=== PATIENT | male | born 1955 | race Two or more races ===

== ENCOUNTER 2017-04-18 22:55 | Inpatient (IN) | payer MEDICAID, OTHER ==
[~2017-04-18] VITALS: Ht 165.1 cm; Wt 89.8 kg
--- NOTE | 2017-04-18 22:58 | NUR ---
PT TO ER BED 3. BBRA FROM HOME PT WITH SOB X 1 HOUR, ON CPAP BY EMS ON ARRIVAL . PT HR [address] MON[address]OR. [address] STEWART AND RT AT THE BEDSIDE.
[2017-04-18 23:00] VITALS: BP 102/71
--- NOTE | 2017-04-18 23:00 | NUR ---
BIPAP SETTINGS IPAP 15 EPAP 5 FIO2 100% RATE 18.
--- NOTE | 2017-04-18 23:03 | NUR ---
18G IV TO R AC X 1 ATTEMPT USING ASEPTIC TECH, BLOOD HANDED OVER TO LAB AT THE BEDSIDE. IV FLUSHES EASILY, NO S/S INFILTRATION NOTED.
--- NOTE | 2017-04-18 23:07 | NUR ---
XRAY AT BEDSIDE.
[2017-04-18] MEDS ORDERED: AMIODARONE 150 MG/3 ML VIAL IV ONE ×5 (23:13→23:30)
[2017-04-18 23:20] LABS: BASOPHILS # (AUTO) 0.1 /CMM (0.0-0.2); BASOPHILS % (AUTO) 0.6 % (0.0-2.0); EOSINOPHILS # (AUTO) 0.6 /CMM (0.0-0.7); EOSINOPHILS % (AUTO) 3.4 % (0.0-6.0); HEMATOCRIT 52 % (39-51); HEMOGLOBIN 17.1 g/dL (13.5-17.5); LYMPHOCYTES # (AUTO) 8.1 /CMM (0.8-4.8); LYMPHOCYTES % (AUTO) 45.6 % (20.0-44.0); MEAN CORPUSCULAR HEMOGLOBIN 30 PG (26.0-33.0); MEAN CORPUSCULAR HGB CONC 33 g/dl (31.0-36.0); MEAN CORPUSCULAR VOLUME 90 fL (80-96); MONOCYTES # (AUTO) 1.8 /CMM (0.1-1.30); MONOCYTES % (AUTO) 9.9 % (2.0-12.0); NEUTROPHILS # (AUTO) 7.2 /CMM (1.8-8.9); NEUTROPHILS % (AUTO) 40.5 % (43.0-81.0); PLATELET COUNT (AUTO) 211 /CMM (150-450); RDW COEFFICIENT OF VARIATION 15.3 (11.5-15.0); RED BLOOD CELL COUNT(AUTO) 5.76 MIL/uL (4.5-6.0); WHITE BLOOD COUNT (AUTO) 17.8 K/uL (4.3-11.0)
[2017-04-18 23:28] LABS: ABG BASE EXCESS -10.1 mmol/L; ABG OXYGEN SATURATION 99.2 % (92.0-98.5); ABG PCO2 34.1 mmHg (35.0-45.0); ABG PH 7.276 (7.350-7.450); ABG PO2 320.5 mmHg (75.0-100.0); AaDO2 358.4 mmHg; COHb 2.1 % (0.5-1.5); MetHb 0.8 % (0.0-1.5); O2Hb 96.3 % (94.0-97.0); SITE, ABG Right Radial; VENT MODE, BG Bipap 20/10 100% BR20
[2017-04-18 23:30] LABS: INR 0.96 (0.87-1.13)
--- NOTE | 2017-04-18 23:30 | NUR ---
PT REC'D ON CPAP MASK 15L. SOB AND RESP DISTRESS NOTED. PT PLACED ON BIPAP PER DR HEALY REQUEST. BIPAP PLUGGED INTO RED OUTLET. AMBU BAG BEDSIDE. WILL CONTINUE TO MONITOR.
[2017-04-18] MEDS ORDERED: ERGO400T7 PO (23:34)
[2017-04-18] MEDS ORDERED: POTA10CA43 PO (23:34)
[2017-04-18] MEDS ORDERED: CLOP75TA15 PO (23:34)
[2017-04-18] MEDS ORDERED: CILO100T PO (23:34)
[2017-04-18] MEDS ORDERED: ISOS30TA6 PO (23:34)
[2017-04-18] MEDS ORDERED: FAMO20TA8 PO (23:34)
[2017-04-18] MEDS ORDERED: TAMS0.4C34 PO (23:34)
[2017-04-18] MEDS ORDERED: LOSA25TA13 PO (23:34)
[2017-04-18] MEDS ORDERED: ASPI-605 PO (23:34)
[2017-04-18] MEDS ORDERED: OMEG1CAP PO (23:34)
[2017-04-18] MEDS ORDERED: CARV12.52 PO (23:34)
[2017-04-18] MEDS ORDERED: FINA5TAB11 PO (23:34)
[2017-04-18] MEDS ORDERED: FURO-144 PO (23:34)
[2017-04-18] MEDS ORDERED: ATOR80TA PO (23:34)
[2017-04-18] MEDS ORDERED: NITR0.4T48 SL (23:34)
[2017-04-18] MEDS ORDERED: MAGN400T6 PO (23:34)
[2017-04-18 23:39] LABS: ALANINE AMINOTRANSFERASE 55 U/L (12-78); ALBUMIN 4.3 g/dL (3.4-5.0); ALKALINE PHOSPHATASE 76 U/L (46-116); ASPARTATE AMINOTRANSFERASE 30 U/L (15-37); B-TYPE NATRIURETIC PEPTIDE 2321 PG/ML (0-125); BILIRUBIN,DIRECT 0.2 mg/dL (0.0-0.2); BILIRUBIN,TOTAL 0.7 mg/dL (0.2-1.0); CALCIUM, SERUM 9.3 mg/dL (8.5-10.1); CARBON DIOXIDE 23 mmol/L (21-32); CHLORIDE 105 mmol/L (98-107); CREATININE 1.5 mg/dL (0.6-1.3); GLUCOSE 175 mg/dL (74-106); POTASSIUM 3.1 mmol/L (3.5-5.1); SODIUM SERUM 144 mmol/L (136-145); TOTAL PROTEIN, SERUM 8.1 g/dL (6.4-8.2)
--- NOTE | 2017-04-18 23:40 | NUR ---
ABG RESULTS SHOWN TO DR STEWART. BIPAP SETTINGS ADJUSTED PER DR STEWART Addendum: 04/18/17 at 2358 by KATERINE BROWN RT Amended: Links added.
[2017-04-18 23:46] LABS: UREA NITROGEN, BLOOD 22 mg/dL (7-18)
[2017-04-19] VITALS (25 sets, daily range): BP systolic 95–134; BP diastolic 45–90
--- NOTE | 2017-04-19 00:10 | NUR ---
PT CONTINUES ON BIPAP, MD AT BEDSIDE SPEAKING WITH FAMILY.
[2017-04-19 00:13] LABS: TROPONIN I 0.234 ng/mL (0.00-0.056)
--- NOTE | 2017-04-19 00:18 | NUR ---
DR. MIRIAM HENLEY
[2017-04-19] MEDS ORDERED: ONDANSETRON HCL/PF 4 MG/2 ML VIAL IVP PRN (00:30)
[2017-04-19] MEDS ORDERED: ENOXAPARIN SODIUM 40 MG/0.4 ML DISP.SYRIN SQ SCH (00:30)
[2017-04-19] MEDS ORDERED: ASPIRIN 325 MG TABLET PO ONE (00:30)
[2017-04-19] MEDS ORDERED: NITROGLYCERIN 0.4 MG/TAB BOTTLE SL PRN (00:30)
[2017-04-19] MEDS ORDERED: MORPHINE SULFATE INJ 2 MG/ML DISP.SYRIN IV PRN (00:30)
--- NOTE | 2017-04-19 00:31 | NUR ---
ICU 255
--- NOTE | 2017-04-19 00:35 | NUR ---
IN & OUT CATHETER DONE USING ENGLISH COMPOSITION TEACHER, URINE OBTAINED AND SENT TO THE LAB.
--- NOTE | 2017-04-19 00:43 | NUR ---
REPORT GIVEN TO THERESA SHAH FOR VANIA.
[2017-04-19] MEDS ORDERED: ASPIRIN 325 MG TABLET ONE (00:46)
[2017-04-19 00:51] LABS: APPEARANCE,URINE CLEAR (CLEAR); BILIRUBIN,URINE NEGATIVE (NEGATIVE); BLOOD, URINE TRACE-INTA Ery/uL (NEGATIVE); COLOR,URINE YELLOW (YELLOW); KETONES,URINE NEGATIVE (NEGATIVE); LEUKOCYTE ESTERASE ,URINE NEGATIVE (NEGATIVE); NITRITE, URINE NEGATIVE (NEGATIVE); PROTEIN,URINE TRACE mg/dl (NEGATIVE); UGLUCOSE NEGATIVE (NEGATIVE); UROBILINOGEN,URINE 0.2 EU/dL (0.2)
[2017-04-19 00:58] LABS: BACTERIA,URINE Few /HPF (None Seen); HYALINE CASTS, URINE Few /LPF (None Seen); SQUAMOUS EPITHELIAL CELL,UR Few /HPF (None Seen); WBC,URINE 0-2 /HPF (0-3)
--- NOTE | 2017-04-19 01:31 | NUR ---
PT TRANSPORTED TO ICU 255 VIA STRETCHER ON CLINICAL RESEARCH SPECIALIST WITH RN AND RT PER ACLS PROTOCOL. VSS.
[2017-04-19] MEDS: FUROSEMIDE 40 MG/4 ML VIAL IV SCH ×3 (01:49→12:05)
[2017-04-19] MEDS ORDERED: HEPARIN SODIUM, PORCINE 5000 UNITS/1 ML VIAL IV ONE (07:00)
[2017-04-19] MEDS ORDERED: HEPARIN INFUSION/D5W 500 ML IV PRN (07:00)
--- NOTE | 2017-04-19 07:00 | NUR ---
ACADEMIC PROGRAM SPECIALIST PT WAS ADMITTED FROM ER WITH DIAGNOSIS RESPIRATORY FAILURE, V. TACH, CHF, NSTEMI. PT IS AWAKE, ALERT, ORIENTED. THAI SPEAKING. BIPAP 20/10-18 -60%. BILATERAL CRACKLES. SCOPE-A.FIB WITH PVC'S. VOIDS SUFFICIENT AMT. OF CLEAR YELLOW URINE. LASIX 40 MG IVP Q 8 HOURS BY MD ORDER. CXR-CARDIOMEGALY & CHF. PT DENIES ANY PAIN, SOB OR ANY OTHER DISCOMFORT. TROPONIN ELEVATED FROM 0.234 IN ER TO 29.177 IN A.M. LABS. STAT ECG DONE AND DR PINEDA WAS NOTIFIED. HE ORDERED TO START HEPARIN DRIP FOR ACS/AMI PROTOCOL. PT IS 90 KG. PT IS SUPPOSED TO BE GIVEN 6300 UNITS OFHEPARIN BOLUS & START HEPARIN DRIP @ 1350 UNITS/HR. PTT Q 6 HOURS. PT NEEDS OUTSOLE COMPRESSOR CONSULTATION. REPORAT GIVEN TO TOBY RENE RN.
--- NOTE | 2017-04-19 07:05 | NUR ---
RN INITIAL NOTES RECEIVED PT AWAKE, A/OX4, POLISH/HUNGARIAN SPEAKING. ON BIPAP. HOB ELEVATED. NO RESPIRATORY DISTRESS NOTED. DENIES ANY PAIN. IV LINES IN PLACE. FLUSHED WITH NS. PT CONTINENT, USES URINAL. SKIN INTACT. BLE ELEVATED. CALL LIGHT WITHIN REACH. WILL MONITOR.
[2017-04-19] MEDS ORDERED: PANTOPRAZOLE 40 MG VIAL IV SCH (07:30)
--- NOTE | 2017-04-19 08:52 | NUR ---
RN NOTES SEEN AND EXAMINED BY DR. KU. AWARE OF PT'S ADMISSION DX. WAS ON AMIO DRIP FOR UNCONTROLLED A.FIB AND MED DC'D AROUND 0200. CURRENT LAB VALUES. WBC 17.8, HCT 17.1, HCT 52, PLATELET 211. SODIUM 144, POTASSIUM 3.1, BUN 22, CREA 1.5. BNP 2321, LACTIC ACID FROM 5.7 TO 5.1. TROPONIN FROM 0.234 TO 29.177. STAT EKG DONE AND PT STARTED ON HEPARIN DRIP. WILL RECHECK PTT AT 1340. MD ALSO AWARE OF LATEST CXR RESULT. ORDERED STAT LAB WORKS. WILL CONTINUE TO MONITOR PT
[2017-04-19] MEDS ORDERED: ASPIRIN EC 81 MG TABLET.DR PO SCH (09:00)
[2017-04-19] MEDS ORDERED: AMIODARONE 900 MG in IV D5W 500 ML IV PRN (09:00)
[2017-04-19 09:07] LABS: BASOPHILS % (AUTO) 0.4 % (0.0-2.0); EOSINOPHILS % (AUTO) 0.2 % (0.0-6.0); HEMATOCRIT 47 % (39-51); HEMOGLOBIN 15.6 g/dL (13.5-17.5); LYMPHOCYTES # (AUTO) 1.8 /CMM (0.8-4.8); LYMPHOCYTES % (AUTO) 13.7 % (20.0-44.0); MEAN CORPUSCULAR HEMOGLOBIN 30 PG (26.0-33.0); MEAN CORPUSCULAR HGB CONC 33 g/dl (31.0-36.0); MEAN CORPUSCULAR VOLUME 90 fL (80-96); MONOCYTES # (AUTO) 1.2 /CMM (0.1-1.30); NEUTROPHILS # (AUTO) 9.8 /CMM (1.8-8.9); NEUTROPHILS % (AUTO) 76.7 % (43.0-81.0); PLATELET COUNT (AUTO) 170 /CMM (150-450); RDW COEFFICIENT OF VARIATION 14.6 (11.5-15.0); RED BLOOD CELL COUNT(AUTO) 5.24 MIL/uL (4.5-6.0); WHITE BLOOD COUNT (AUTO) 12.8 K/uL (4.3-11.0)
[2017-04-19] MEDS: Magnesium 1GM/D5W 100ML PREMIX 100 ML IV SCH ×2 (09:12→10:12)
[2017-04-19 09:16] LABS: ALBUMIN 3.8 g/dL (3.4-5.0); BILIRUBIN,TOTAL 0.8 mg/dL (0.2-1.0); CALCIUM, SERUM 9.1 mg/dL (8.5-10.1); CREATININE 1.4 mg/dL (0.6-1.3); MAGNESIUM 2.2 mg/dL (1.8-2.4); PHOSPHORUS 3.3 mg/dL (2.5-4.9); POTASSIUM 4.4 mmol/L (3.5-5.1)
[2017-04-19 09:56] LABS: THYROID STIMULATING HORMONE 1.116 uIU/mL (0.358-3.74)
[2017-04-19] MEDS ORDERED: IPRATROPIUM NEB FS 0.5 MG/2.5 ML AMPUL.NEB NEB PRN (11:00)
[2017-04-19] MEDS ORDERED: ALBUTEROL FS 2.5 MG/0.5 ML VIAL.NEB NEB PRN (11:00)
[2017-04-19] MEDS ORDERED: DEXTROSE 50%-WATER 50 ML DISP.SYRIN IV PRN (11:00)
[2017-04-19] MEDS ORDERED: AMIODARONE 900 MG in IV D5W 482 ML IV PRN (11:00)
[2017-04-19] MEDS ORDERED: INSULIN REGULAR, HUMAN 100 UNIT/ML 3 ML VIAL SQ PRN (11:00)
--- NOTE | 2017-04-19 11:15 | NUR ---
RN NOTES SEEN AND EXAMINED BY WILBERTO COLEMAN NP. REVIEWED H&P, LATEST LAB VALUES AND IMAGING STUDIES. PT ON BIPAP. ON HEPARIN DRIP AT 1350UNITS/HR. AMIO DRIP AT 1MG/MIN STARTED. DR. KU CONSULTED. PT AWAKE, A/OX4. NO RESPIRATORY DISTRESS NOTED. NO SIGNS OF SOB NOTED. DENIES ANY PAIN. ORDERED LABS IN AM. WILL MONITOR.
[2017-04-19] MEDS: BLOOD SUGAR DIAGNOSTIC 1 EACH STRIP IN SCH ×2 (11:45→17:59)
--- NOTE | 2017-04-19 13:40 | NUR ---
RN NOTES TROPONIN LEVEL 52.120 FROM [address] KU. PT ON HEPARIN DRIP 1350UNITS/HR AND AMIODARONE DRIP 1MG/MIN. PT REMAINS A/0X4. DENIES CHEST PAIN. VITAL SIGNS STABLE. NO NEW ORDER MADE. WILL CLOSELY MONITOR.
--- NOTE | 2017-04-19 15:30 | NUR ---
RN NOTES SEEN AND EXAMINED BY DR. ROOT. PT ON BIPAP. HOB ELEVATED. NO RESPIRATORY DISTRESS NOTED. NO SOB NOTED. P A/OX4. WILL CLOSELY MONITOR
--- NOTE | 2017-04-19 15:40 | NUR ---
RN NOTES PTT 122. HEPARIN DRIP ON HOLD. WILL RESTART AT 1640 PER PROTOCOL.
[2017-04-19 16:46] LABS: ABG OXYGEN SATURATION 90.3 % (92.0-98.5); ABG PCO2 30.7 mmHg (35.0-45.0); ABG PH 7.459 (7.350-7.450); COHb 0.3 % (0.5-1.5); MetHb 0.5 % (0.0-1.5); O2Hb 89.6 % (94.0-97.0); SITE, ABG Right Femoral
--- NOTE | 2017-04-19 18:45 | NUR ---
RN CLOSING NOTES PT REMAINS A/OX4. ON BIPAP. HOB ELEVATED. DENIES ANY PAIN. IV LINES IN PLACE. ON AMIO DRIP AT 0.5MG/MIN, VITAL SIGNS CLOSELY MONITORED AND HEPARIN DRIP AT 1100UNITS/HR, PTT CHECK AT 2240. FC IN PLACE. NO HEMATURIA NOTED. ASSISTED ON REPOSITIONING. KEPT CLEAN AND DRY. KEPT COMFORTABLE. PT FOR TRANSFER TO [facility] FOR CATH AND POSSIBLE ABLATION. P/U TIME AT 2100 PER CASE MANAGEMENT. WILL ENDORSE
--- NOTE | 2017-04-19 19:49 | NUR ---
TALENT ACQUISITION CONSULTANT. INITIAL ASSESSMENT. RECEIVED THE PT REST ON THE BED. AWAKE, ALERT, FOLLOW COMMANDS. BIPAP ON. SETTINGS 20/10,RATE 20,FIO2 60%. SAT 98%. CAT SKINNER SHOWING NSR WITH PVCS. IV RT AC 18G,LT FA 20G. HEPARIN 1100U,AMIODARONE 0.5MG NPO. HOB ELEVATED. FC PATENT. WILL CONTINUE TO MONITOR VITALS.
--- NOTE | 2017-04-19 21:39 | NUR ---
WIRE COMMUNICATIONS ENGINEER REPORT GIVEN TO [facility] WIRE COMMUNICATIONS ENGINEER, PT SON AND TRANSPORTATION AT BED SIDE. PT SON DISCHARGE PAPER SIGNED. PT DEFT IN THE ICU AT 2114. BELONGINGS WITH PT SON,
== END 2017-04-19 21:35 | disposition short-term general hospital (02) | DRG 190 ==
LOC: ER 22:57 → EDBD 04-19 00:35 → ICU 04-19 00:35
PROC: 5A09457 Assistance with Respiratory Ventilation, 24-96 Consecutive Hours, Continuous Positive Airway Pressure (ICD-10-PCS; principal; 2017-04-19)
DX: I21.4 Non-ST elevation (NSTEMI) myocardial infarction (principal); J96.01 Acute respiratory failure with hypoxia; I50.41 Acute combined systolic (congestive) and diastolic (congestive) heart failure; I47.2 Ventricular tachycardia; N17.9 Acute kidney failure, unspecified; E87.2 Acidosis; N18.4 Chronic kidney disease, stage 4 (severe); E11.22 Type 2 diabetes mellitus with diabetic chronic kidney disease; E78.5 Hyperlipidemia, unspecified; E87.6 Hypokalemia; F17.210 Nicotine dependence, cigarettes, uncomplicated; I13.0 Hypertensive heart and chronic kidney disease with heart failure and stage 1 through stage 4 chronic kidney disease, or unspecified chronic kidney disease; I25.10 Atherosclerotic heart disease of native coronary artery without angina pectoris; Z95.810 Presence of automatic (implantable) cardiac defibrillator; G47.33 Obstructive sleep apnea (adult) (pediatric); I49.3 Ventricular premature depolarization; Z98.61 Coronary angioplasty status
CPT/HCPCS: 36415; 36600; 71045-TC; 80048-TC; 80053-TC; 80061-TC; 80076-TC; 81000-TC; 82306; 82803-TC; 82962-TC; 83605-TC; 83735-TC; 83880; 84100-TC; 84439-TC; 84443-TC; 84484-TC; 85025-TC; 85730-TC; 87040-TC; 87081-TC; 87086-TC; 93307-TC; 99082-TC; C9113; J0282; J1644; J1815; J1940; J3475; J7030; J7060